=== PATIENT | female | born 1960 | race Caucasian/White ===

== ENCOUNTER 2017-07-05 18:14 | Emergency (ER) | payer OTHER ==
[2017-07-05] MEDS ORDERED: MORPHINE 10 MG/ML VIAL ONE ×2 (18:41→20:12)
[2017-07-05] MEDS ORDERED: ONDANSETRON 4 MG/2 ML VIAL ONE (18:41)
[2017-07-05 19:29] LABS: Absolute Lymphocytes (CBC) 1.2 K/uL (0.7-4.9); Absolute Monocytes 0.9 K/uL (0.1-1.3); Absolute Neutrophil 8.1 K/uL (1.8-8.0); Basophils % 0.2 % (0-1.3); Hematocrit 35.2 % (36.0-45.0); Lymphocytes % 11.9 % (15.3-44.8); MCH 28.2 pg (27.0-35.0); MCV 87.2 fL (80-100); MPV 8.6 fL (7.6-11.3); Monocytes % 8.8 % (3.3-12.3); RBC Red Blood Cell Count 4.03 M/uL (3.86-4.86)
[2017-07-05 19:30] LABS: Bicarbonate 29 mEq/L (21-31); Glucose Level 129 mg/dL (65-120); Lipase 24 U/L (22-51); Potassium 3.8 mEq/L (3.6-5.0); Sodium Level 137 mEq/L (135-145)
[2017-07-05 19:31] LABS: Glomerular Filtration Rate > 60 mL/min (>60)
[2017-07-05 19:36] LABS: ALT/SGPT 23 IU/L (10-60); AST/SGOT 25 IU/L (10-42); Albumin 4.2 g/dL (3.2-5.5); Alkaline Phosphatase 48 IU/L (42-121); BUN Blood Urea Nitrogen 8 mg/dL (6-20); Bilirubin Direct 0.1 mg/dL (0-0.2); Bilirubin Total 0.5 mg/dL (0.3-1.2); Glomerular Filtration Rate > 90 mL/min (=/>90)
--- NOTE | 2017-07-05 20:45 | RAD REPORT ---
EXAM DESCRIPTION: CT - Abdomen Pelvis W Contrast - 07/05/2017 7:58 pm CLINICAL HISTORY: Abdominal pain, epigastric pain radiating to the back, prior history of breast can cer and diverticulitis COMPARISON: CT May 2016, April 2016 TECHNIQUE: Biphasic, helical CT imaging of the abdomen and pelvis was performed following 100 ml non -ionic IV contrast. Oral contrast was given. All CT scans are performed using dose optimization technique as appropriate and may include automated exposure control or mA/KV adjustment according to patient size. FINDINGS: No suspicious findings in the lung bases. The liver and spleen show no suspicious findings. Liver is borderline to mildly fatty infiltrated. Ch olecystectomy clips are present. No biliary tree dilatation. Symmetric renal function is seen with no hydronephrosis or suspicious renal mass. No pyelonephritis o r acute renal parenchymal process. No urinary bladder abnormality. Uterus is absent. Ovaries are atro phic. No adnexal abnormality. No gastric dilatation or gastric wall thickening. At the ligament of Treitz there is a 4 centimeter r ounded mass. Air in bowel content are within this mass that shows circumferential wall thickening. Th ere is inflammatory stranding and fluid in the adjacent fat. This mass abuts the pancreatic tail and there is peripancreatic stranding present. The pancreas is not believed to be the primary source. Rev iew of prior imaging shows a diverticulum at the ligament of Treitz in this appears to be secondarily infected. It is uncertain if this is a dilated, infected diverticulum or if there is perforation of a diverticulum with a 4 centimeter abscess. No free air or pneumatosis. No other area of inflammatory stranding. No hernia, mass or bulky lympha denopathy. No adrenal abnormality. No suspicious bony findings. IMPRESSION: Duodenum diverticulitis at the ligament of Treitz. A 4 centimeter mass at the ligament of Treitz is either a dilated infected diverticulum or there has been perforation of a diverticulum w ith a 4 centimeter extraluminal abscess. The infectious/inflammatory mass abuts the tail of the pancreas and there is peripancreatic edematous / inflammatory stranding. A primary pancreatic process is not suspected. The pancreatic tail may be s econdarily involved. Cholecystectomy clips with no biliary tree dilatation. Borderline fatty infiltration noted.
[2017-07-05 21:06] LABS: Urine Blood NEGATIVE (NEG); Urine Glucose NEGATIVE (NEG); Urine Protein 1+ (NEG); Urine pH 8.5 (5.0-7.0)
[2017-07-05] MEDS ORDERED: MEPERIDINE HCL 50 MG/ML AMP ONE (21:26)
[2017-07-05] MEDS ORDERED: PIPER/TAZO/NS 3.375gm 3.375 GM/100 ML BAG ONE (21:27)
[2017-07-05] MEDS ORDERED: PROMETHAZINE 25 MG/ML VIAL ONE (21:27)
[2017-07-05] MEDS ORDERED: NA CHLORIDE 0.9% 1,000 ML ONE (21:27)
--- NOTE | 2017-07-05 22:42 | ER ---
Nurse's Notes [facility] Name: Israel Hendricks Age: 57 yrs Sex: Female : 1960 Arrival Date: 07/05/2017 Time: 18:16 Bed 20 Private MD: Diagnosis: Duodenal Diverticulitis with abscess formation Presentation: 07/05 18:19 Presenting complaint: Patient states: I have been having epigastric pain that radiates la1 to my back since 2230 last night "it feels like I have been punched in my stomach" pt reports hx of appendectomy and cholecystectomy. Pt denies N/V/D. Transition of care: patient was not received from another setting of care. Onset of symptoms was July 05, 2017. Care prior to arrival: None. 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 - Social history:: Smoking status: Patient/guardian denies using tobacco. Screenin:32 Abuse screen: Denies threats or abuse. Nutritional screening: No deficits noted. em Tuberculosis screening: No symptoms or risk factors identified. Fall Risk None identified. Assessment: 18:33 General: Appears in no apparent distress. uncomfortable, Behavior is calm, cooperative. em Pain: Complains of pain in epigastric area and left upper quadrant Pain currently is 8 out of 10 on a pain scale. Pain began 1 day ago. Neuro: Level of Consciousness is awake, alert, obeys commands, Oriented to person, place, time, situation. Cardiovascular: Heart tones S1 S2 present Capillary refill < 3 seconds Patient's skin is warm and dry. Respiratory: Airway is patent Respiratory effort is even, unlabored, Respiratory pattern is regular, symmetrical. GI: Abdomen is round non-distended, Bowel sounds present X 4 quads. Abd is soft X 4 quads Abd is non tender in epigastric area and left upper quadrant. GI: Patient currently denies nausea, vomiting. : No signs and/or symptoms were reported regarding the genitourinary system. EENT: No signs and/or symptoms were reported regarding the EENT system. Derm: Skin is intact, Skin is pink, warm \\T\\ dry. Musculoskeletal: Range of motion: intact in all extremities. 18:59 Reassessment: Patient appears in no apparent distress at this time. I agree with above iw assessment by Ivan Ribeiro LVN. 19:14 General: Appears in no apparent distress. uncomfortable, Behavior is calm, cooperative. ea Pain: Complains of pain in left subscapular area and left mid back Pain currently is 6 out of 10 on a pain scale. Quality of pain is described as aching, Pain began 1 day ago. Neuro: Level of Consciousness is awake, alert, obeys commands, Oriented to person, place, time, situation. Cardiovascular: Heart tones present Patient's skin is warm and dry. Respiratory: Airway is patent Respiratory effort is even, unlabored, Respiratory pattern is regular, symmetrical. GI: Abdomen is non-distended, Bowel sounds present X 4 quads. Abd is soft X 4 quads. : No signs and/or symptoms were reported regarding the genitourinary system. Derm: Skin is pink, warm \\T\\ dry. 19:45 Reassessment: pt taken to CT. ea 20:28 Reassessment: pt complaining of abd pain 9/10, provider notified, medication order ea obtained, medication administered, pt tolerated well. 22:18 Reassessment: Pt resting with eyes closed, respirations even and unlabored, warm ea blankets placed on patient. Family at bedside. Pt placed on bacteriology research assistant. No obvious pain or discomfort noted at this time. 23:07 Reassessment: Report called to Liset RHODES at [facility] in [place]. ea 23:10 Reassessment: Pt resting with eyes closed, respirations even and unlabored, chest ea expansions even and symmetrical. No obvious s/s of pain or discomfort noted at this time. Family at bedside awaiting for EMS for transfer. 23:32 Reassessment: Patient and/or family updated on plan of care and expected duration. Pain ea level reassessed. Patient is alert, oriented x 3, equal unlabored respirations, skin warm/dry/pink. [facility] here for transfer. Vital Signs: 18:20 BP 136 / 68; Pulse 94; Resp 16; Temp 98.4(TE); Pulse Ox 100% on R/A; Weight 74.84 kg; la1 Height 5 ft. 5 in. (165.10 cm); 19:00 BP 103 / 59; Pulse 98; Resp 18; Pulse Ox 95% on R/A; em 19:17 BP 103 / 56; Pulse 80; Resp 18; Pulse Ox 95% on R/A; Pain 6/10; ea 20:30 BP 126 / 59; Pulse 88; Resp 18; Pulse Ox 95% on R/A; Pain 7/10; ea 21:10 BP 130 / 60; Pulse 84; Resp 16 S; Pulse Ox 98% on 2 lpm NC; ea 23:34 BP 110 / 56; Pulse 83; Resp 16 S; Pulse Ox 100% on 2 lpm NC; Pain 0/10; ea 18:20 Body Mass Index 27.46 (74.84 kg, 165.10 cm) la1 21:10 pt placed on O 2 at 2 L per nc ea ED Course: 18:16 Patient arrived in ED. tw3 18:17 Branden Arevalo PA is PHCP. jr8 18:17 Dale Rios MD is Attending Physician. jr8 18:20 Triage completed. la1 18:21 Arm band placed on right wrist. la1 18:22 Ivan Ribeiro LVN is Primary Nurse. em 18:32 Patient has correct armband on for positive identification. Placed in gown. Bed in low em position. Call light in reach. Side rails up X2. Adult w/ patient. 18:32 No provider procedures requiring assistance completed. em 18:55 Initial lab(s) drawn, by me, sent to lab. Inserted saline lock: 22 gauge in right em antecubital area, using aseptic technique. Blood collected. 19:58 CT Abd/Pelvis - W/Contrast In Process Unspecified. EDMS 22:46 Primary Nurse role handed off by Ivan Ribeiro LVN rg2 23:06 Harriet Buchanan, MEAGAN is Primary Nurse. ea 23:33 Patient transferred, IV remains in place. ea Administered Medications: 18:56 Drug: morphine 4 mg Route: IVP; Site: right antecubital; iw 19:00 Follow up: Response: No adverse reaction ea 19:00 Follow up: Response: Pain is decreased ea 18:56 Drug: Zofran 4 mg Route: IVP; Site: right antecubital; iw 19:00 Follow up: Response: No adverse reaction ea 20:22 Drug: morphine 4 mg Route: IVP; Site: right antecubital; ea 21:00 Follow up: Response: No adverse reaction; Pain is decreased ea 21:51 Drug: NS 0.9% 1000 ml Route: IV; Rate: 125 ml/hr; Site: right antecubital; ea 23:15 Follow up: Response: No adverse reaction; IV Status: Completed infusion ea 21:51 Drug: Demerol 50 mg Route: IVP; Site: right antecubital; ea 22:17 Follow up: Response: No adverse reaction; Pain is decreased ea 22:17 Follow up: Response: No adverse reaction; Pain is decreased ea 21:51 Drug: Phenergan 12.5 mg Route: IVP; Site: right antecubital; ea 22:52 Follow up: Response: No adverse reaction ea 21:52 Drug: Zosyn 3.375 grams Route: IVPB; Infused Over: 60 mins; Site: right antecubital; ea 22:16 Follow up: Response: No adverse reaction; IV Status: Completed infusion ea Outcome: 22:42 ER care complete, transfer ordered by . wendy 23:12 Instructed on the need for transfer. ea 23:33 Transferred by ground EMS to [facility], Transfer form completed. ea 23:33 Condition: stable 23:36 Patient left the ED. ea Signatures: Dispatcher [employer] Anisa Page rg2 Ivan Ribeiro, A CLASS LINEMAN A CLASS LINEMAN Caridad Ortiz, RN Branden Germain PA PA jrSander Palmer RN RN Saida Silva 3 Harriet Buchanan RN RN ea
--- NOTE | 2017-07-05 22:42 | EDPHYS ---
Physician Documentation [facility] Name: Israel Hendricks Age: 57 yrs Sex: Female : 1960 Arrival Date: 07/05/2017 Time: 18:16 Bed 20 Private MD: ED Physician Dale Rios HPI: 07/05 19:22 This 57 yrs old Female presents to ER via Ambulatory with complaints of jr8 Abdominal Pain. 19:22 The patient presents with abdominal pain in the epigastric area. Onset: The jr8 symptoms/episode began/occurred acutely, yesterday. The symptoms radiate to back. Associated signs and symptoms: none. The symptoms are described as constant. Modifying factors: The symptoms are alleviated by nothing, the symptoms are aggravated by nothing. Severity of pain: At its worst the pain was moderate in the emergency department the pain is unchanged. The patient has not experienced similar symptoms in the past. The patient has not recently seen a physician. 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 - Social history:: Smoking status: Patient/guardian denies using tobacco. ROS: 19:22 Eyes: Negative for injury, pain, redness, and discharge, ENT: Negative for injury, jr8 pain, and discharge, Neck: Negative for injury, pain, and swelling, Cardiovascular: Negative for chest pain, palpitations, and edema, Respiratory: Negative for shortness of breath, cough, wheezing, and pleuritic chest pain, Back: Negative for injury and pain, MS/Extremity: Negative for injury and deformity, Skin: Negative for injury, rash, and discoloration, Neuro: Negative for headache, weakness, numbness, tingling, and seizure. 19:22 Abdomen/GI: Positive for abdominal pain, Negative for nausea, vomiting, and diarrhea, abdominal cramps, abdominal distension, anorexia, dysphagia, hematemesis, black/tarry stool, rectal pain, rectal bleeding, bowel incontinence, flatulence. Exam: 19:22 Eyes: Pupils equal round and reactive to light, extra-ocular motions intact. Lids and jr8 lashes normal. Conjunctiva and sclera are non-icteric and not injected. Cornea within normal limits. Periorbital areas with no swelling, redness, or edema. ENT: Nares patent. No nasal discharge, no septal abnormalities noted. Tympanic membranes are normal and external auditory canals are clear. Oropharynx with no redness, swelling, or masses, exudates, or evidence of obstruction, uvula midline. Mucous membranes moist. Neck: Trachea midline, no thyromegaly or masses palpated, and no cervical lymphadenopathy. Supple, full range of motion without nuchal rigidity, or vertebral point tenderness. No Meningismus. Cardiovascular: Regular rate and rhythm with a normal S1 and S2. No gallops, murmurs, or rubs. Normal PMI, no JVD. No pulse deficits. Respiratory: Lungs have equal breath sounds bilaterally, clear to auscultation and percussion. No rales, rhonchi or wheezes noted. No increased work of breathing, no retractions or nasal flaring. Back: No spinal tenderness. No costovertebral tenderness. Full range of motion. Skin: Warm, dry with normal turgor. Normal color with no rashes, no lesions, and no evidence of cellulitis. MS/ Extremity: Pulses equal, no cyanosis. Neurovascular intact. Full, normal range of motion. Neuro: Awake and alert, GCS 15, oriented to person, place, time, and situation. Cranial nerves II-XII grossly intact. Motor strength 5/5 in all extremities. Sensory grossly intact. Cerebellar exam normal. Normal gait. 19:22 Abdomen/GI: Inspection: abdomen appears normal, Bowel sounds: active, all quadrants, Palpation: soft, in all quadrants, moderate abdominal tenderness, in the epigastric area and left upper quadrant, mass, is not appreciated, rebound tenderness, is not appreciated, voluntary guarding, is not appreciated, involuntary guarding, is not appreciated, no appreciated organomegaly, Indicators: McBurney's point is not tender, Magallanes's sign is negative, Rovsing's sign is negative, Liver: no appreciated palpable abnormalities, tenderness, is not appreciated. Vital Signs: 18:20 BP 136 / 68; Pulse 94; Resp 16; Temp 98.4(TE); Pulse Ox 100% on R/A; Weight 74.84 kg; la1 Height 5 ft. 5 in. (165.10 cm); 19:00 BP 103 / 59; Pulse 98; Resp 18; Pulse Ox 95% on R/A; em 19:17 BP 103 / 56; Pulse 80; Resp 18; Pulse Ox 95% on R/A; Pain 6/10; ea 20:30 BP 126 / 59; Pulse 88; Resp 18; Pulse Ox 95% on R/A; Pain 7/10; ea 21:10 BP 130 / 60; Pulse 84; Resp 16 S; Pulse Ox 98% on 2 lpm NC; ea 23:34 BP 110 / 56; Pulse 83; Resp 16 S; Pulse Ox 100% on 2 lpm NC; Pain 0/10; ea 18:20 Body Mass Index 27.46 (74.84 kg, 165.10 cm) la1 21:10 pt placed on O 2 at 2 L per nc ea MDM: 18:22 Patient medically screened. jr8 22:39 Data reviewed: vital signs, nurses notes, lab test result(s), radiologic studies, CT jr8 scan, and as a result, I will admit patient. Data interpreted: Pulse oximetry: on room air is 95 %. Interpretation: normal. Counseling: I had a detailed discussion with the patient and/or guardian regarding: the historical points, exam findings, and any diagnostic results supporting the discharge/admit diagnosis, lab results, radiology results, the need to transfer to another facility, for higher level of care. ED course: After Dr. Delarosa consulted with Dr. Frost. Dr. Frost felt uncomfortable with keeping patient at this facility if she were to need surgical intervention based on where the abscess was in the abdomen. [facility] was called and accepted patient . 07/05 18:22 Order name: Basic Metabolic Panel [facility] 07/05 18:22 Order name: CBC with Diff; Complete Time: 19:35 8 07/05 18:22 Order name: Creatinine for Radiology; Complete Time: 19:35 8 07/05 18:22 Order name: Hepatic Function [facility] 07/05 18:22 Order name: Lipase; Complete Time: 19:37 8 07/05 18:22 Order name: Troponin (emerg Dept Use Only); Complete Time: 19:37 8 07/05 18:23 Order name: Basic Metabolic Panel; Complete Time: 19:37 [facility] 07/05 18:23 Order name: Liver (Hepatic) Function; Complete Time: 19:37 [facility] 07/05 19:35 Order name: CT Abd/Pelvis - W/Contrast; Complete Time: 20:48 [facility] 07/05 20:31 Order name: Urine Dipstick--Ancillary (enter results); Complete Time: 21:07 [facility] 07/05 18:22 Order name: IV Saline Lock; Complete Time: 19:04 [facility] 07/05 18:22 Order name: Labs collected and sent; Complete Time: 19:04 [facility] 07/05 18:22 Order name: Urine Dipstick-Ancillary (obtain specimen); Complete Time: 20:31 [facility] 07/05 18:22 Order name: EKG - Nurse/Tech; Complete Time: 18:55 [facility] 07/05 18:22 Order name: EKG; Complete Time: 18:23 [facility] Administered Medications: 18:56 Drug: morphine 4 mg Route: IVP; Site: right antecubital; iw 19:00 Follow up: Response: No adverse reaction ea 19:00 Follow up: Response: Pain is decreased ea 18:56 Drug: Zofran 4 mg Route: IVP; Site: right antecubital; iw 19:00 Follow up: Response: No adverse reaction ea 20:22 Drug: morphine 4 mg Route: IVP; Site: right antecubital; ea 21:00 Follow up: Response: No adverse reaction; Pain is decreased ea 21:51 Drug: NS 0.9% 1000 ml Route: IV; Rate: 125 ml/hr; Site: right antecubital; ea 23:15 Follow up: Response: No adverse reaction; IV Status: Completed infusion ea 21:51 Drug: Demerol 50 mg Route: IVP; Site: right antecubital; ea 22:17 Follow up: Response: No adverse reaction; Pain is decreased ea 22:17 Follow up: Response: No adverse reaction; Pain is decreased ea 21:51 Drug: Phenergan 12.5 mg Route: IVP; Site: right antecubital; ea 22:52 Follow up: Response: No adverse reaction ea 21:52 Drug: Zosyn 3.375 grams Route: IVPB; Infused Over: 60 mins; Site: right antecubital; ea 22:16 Follow up: Response: No adverse reaction; IV Status: Completed infusion ea Disposition: 07/06 07:17 Co-signature as Attending Physician, Dale Rios MD I agree with the assessment and kdr plan of care. Disposition: 07/05/17 22:42 Transfer ordered to [facility]. Diagnosis is Duodenal Diverticulitis with abscess formation . - Reason for transfer: Higher level of care. - Accepting physician is Dr. Guillory. - Condition is Fair. - Problem is new. - Symptoms have improved. Signatures: Dispatcher [employer] EDMS Dale Rios MD MD kdr Caridad Rico, RN MEAGAN iw Branden Arevalo PA PA jr8 Sander Velazquez RN RN laHarriet Gomez RN RN ea
--- NOTE | 2017-07-06 22:36 | EKG ---
Test Date: 2017-07-05 Test Time: 18:38:42 Skin Care Specialist: SWG MEASUREMENT RESULTS: Intervals: Rate: 82 [place]: 162 QRSD: 100 QT: 380 QTc: 443 [place]: P: 56 [place]: 162 QRS: 14 T: 59 INTERPRETIVE STATEMENTS: Normal sinus rhythm Normal ECG Electronically Signed On 07-06-17 22:35:48 CDT by Den Jesus
== END 2017-07-05 23:36 | disposition short-term general hospital (02) ==
LOC: ER 18:14
DX: K57.20 Diverticulitis of large intestine with perforation and abscess without bleeding (principal); Z85.3 Personal history of malignant neoplasm of breast
CPT/HCPCS: 36415; 74177; 80048; 80076; 81003; 83690; 84484; 85025; 93005; 96361; 96365; 96375; 99285; J2175; J2405; J2543; J2550; J7030; Q9967